=== PATIENT | female | born 1995 | race African-American/Black ===

== ENCOUNTER 2018-03-05 00:53 | Emergency (ER) | payer BC ==
--- NOTE | 2018-03-05 06:43 | ED ---
Upper Extremity Pain - HPI Summary HPI Summary: The pt is a 22 y/o female who presents to the ED with a chief complaint of shoulder pain. The pt states that she was reaching for something outside of her bed around 2300 on 03/04, she had an awkward movement and fell out of her bed onto her shoulder. The pt denies any other pain and any past shoulder trauma - History of Current Complaint Chief Complaint: EDExtremityUpper Stated Complaint: RT SHOULDER INJURY Hx Obtained From: Patient Mechanism Of Injury: Fall From Height Of: - bed Onset/Duration: Started Hours Ago, Still Present Timing: Constant, Lasting Seconds, Lasting Hours Severity Currently: Mild Pain Location: Shoulder - Right Aggravating Factor(s): Movement - Allergies/Home Medications Allergies/Adverse Reactions: Allergies Allergy/AdvReac Type Severity Reaction Status Date / Time No Known Allergies Allergy Verified 03/05/18 00:58 PMH/Surg Hx/FS Hx/Imm Hx Previously Healthy: Yes Sensory History: Denies: Hx Deafness Opthamlomology History: Denies: Hx Legally Blind Infectious Disease History: No Infectious Disease History: Denies: Traveled Outside the [place] in Last 30 Days - Family History Known Family History: Negative: Seizure Disorder - Social History Occupation: Student Lives: Alone Review of Systems Negative: Fever Positive: Myalgia - R shoulder pain All Other Systems Reviewed And Are Negative: Yes Physical Exam - Summary Physical Exam Summary: Appearance: Well-appearing, Well-nourished, lying in bed comfortable Skin: Warm, dry, no obvious rash Eyes: sclera anicteric, no conjunctival pallor ENT: mucous membranes moist Neck: deferred Respiratory: No signs of respiratory distress Cardiovascular: Appears well perfused, pulses are nml Abdomen: deferred Musculoskeletal: Mild tenderness on shoulder point, good ROM with flexion and extension at the elbow, 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 Neurological: Awake and alert, mentation is normal, speech is fluent and appropriate Psychiatric: affect is normal, does not appear anxious or depressed Triage Information Reviewed: Yes Vital Signs On Initial Exam: Initial Vitals Temp Pulse Resp BP Pulse Ox 98.0 F 70 18 124/65 98 03/05/18 00:56 03/05/18 00:56 03/05/18 00:56 03/05/18 00:56 03/05/18 00:56 Vital Signs Reviewed: Yes Diagnostics - Vital Signs Vital Signs Temp Pulse Resp BP Pulse Ox 03/05/18 03:27 97.4 F 84 16 121/71 99 03/05/18 00:56 98.0 F 70 18 124/65 98 - Laboratory Lab Statement: Any lab studies that have been ordered have been reviewed, and results considered in the medical decision making process. Course/Dx - Diagnoses Provider Diagnoses: Shoulder contusion Discharge - Sign-Out/Discharge Documenting (check all that apply): Patient Departure - Discharge Plan Condition: Stable Disposition: HOME Referrals: No Primary Care Phys,NOPCP [Primary Care Provider] - - Billing Disposition and Condition Condition: STABLE Disposition: Home - Attestation Statements Document Initiated by Scribe: Yes Documenting Scribe: Monica Ashley Provider For Whom Jasiel is Documenting (Include Credential): Elijah Freeman MD. Scribe Attestation: Monica Kiran scribed for Elijah Freeman MD. on 03/08/18 at 2114. Scribe Documentation Reviewed: Yes Provider Attestation: The documentation as recorded by the Monica clayton accurately reflects the service I personally performed and the decisions made by Elijah baker MD.
--- NOTE | 2018-03-05 07:49 | RAD ---
HISTORY: fall, right shoulder pain COMPARISONS: None VIEWS: 4 , Frontal internal rotation, external rotation, outlet, and axillary views of the right shoulder FINDINGS: BONE DENSITY: Normal. BONES: There is no displaced fracture. JOINTS: There is no arthropathy. ALIGNMENT: There is no dislocation. SOFT TISSUES: Unremarkable. OTHER FINDINGS: None. IMPRESSION: NO ACUTE OSSEOUS INJURY. IF SYMPTOMS PERSIST, RECOMMEND REPEAT IMAGING. R0
== END 2018-03-05 03:27 | disposition home or self-care (01) ==
LOC: ED 00:53
DX: S40.011A Contusion of right shoulder, initial encounter (principal); W06.XXXA Fall from bed, initial encounter; Y93.9 Activity, unspecified; Y92.003 Bedroom of unspecified non-institutional (private) residence as the place of occurrence of the external cause
CPT/HCPCS: 99282